=== PATIENT | male | born 1975 | race Caucasian/White ===

== ENCOUNTER 2021-08-27 10:32 | Outpatient (REF) | payer OTHER, SELFPAY | END 2021-08-27 10:33 | disposition home or self-care (01) | LOC: HO.HMGCLDS 10:32 | PROVIDERS: Visit Provider Internal Medicine | DX: Z20.822 Contact with and (suspected) exposure to COVID-19 (principal) | CPT/HCPCS: C9803; U0003; U0005 ==

== ENCOUNTER 2021-09-05 11:07 | Outpatient (REF) | payer OTHER, SELFPAY ==
[2021-09-05 12:01] LABS: Binax Internal Control QC Valid; Binax Now Covid-19 Ag Positive (Negative)
== END 2021-09-05 11:08 | disposition home or self-care (01) ==
LOC: HO.LAB 11:07
PROVIDERS: Visit Provider Internal Medicine
DX: Z20.822 Contact with and (suspected) exposure to COVID-19 (principal)
CPT/HCPCS: 36415; C9803

== ENCOUNTER 2021-11-05 09:31 | Outpatient (REF) | payer OTHER, SELFPAY ==
--- NOTE | ~2021-11-05 | XR_ITS ---
EXAMINATION: XR SHOULDER, RIGHT CLINICAL INFORMATION: Pain COMPARISON: None TECHNIQUE: AP external rotation, Grashey, scapular Y, and axillary views of the right shoulder. FINDINGS: There is normal alignment. No acute fracture or dislocation. There is narrowing of the glenohumeral and acromioclavicular joint spaces with mild hypertrophic changes. Overlying soft tissues are intact. Visualized portion of the lungs is clear. XR/XR shoulder RT min 2V IMPRESSION: Mild degenerative changes of the right shoulder without acute fracture or dislocation.
--- NOTE | ~2021-11-05 | XR_ITS ---
EXAMINATION: XR LUMBOSACRAL SPINE CLINICAL INFORMATION: Low back pain COMPARISON: None TECHNIQUE: Three views of the lumbosacral spine. FINDINGS: There is normal alignment without acute fracture or dislocation. Vertebral body heights are maintained. There is mild intervertebral disc space narrowing, most prominent at L4-L5 with endplate osteophyte formation. There is mild facet arthropathy at L4-L5 and L5-S1. The paravertebral soft tissues are normal. Sacroiliac joint spaces are preserved. XR/XR lumbar spine 2-3V IMPRESSION: No acute bony abnormality of the lumbar spine. Mild multilevel degenerative changes.
== END 2021-11-05 09:32 | disposition home or self-care (01) ==
LOC: HO.HMGCX 09:31
PROVIDERS: Visit Provider Internal Medicine
DX: M54.50 Low back pain, unspecified (principal); G89.29 Other chronic pain; M25.511 Pain in right shoulder; Z91.81 History of falling
CPT/HCPCS: 72100; 73030

== ENCOUNTER 2023-02-22 05:51 | Emergency (ER) | payer OTHER, SELFPAY ==
[2023-02-22 06:07] VITALS: BP 137/95; PULSE 60; RESP 14; TEMP 36.7; O2SAT 98; BMI 27.2
--- NOTE | 2023-02-22 08:05 | ED_ITS ---
HPI - Dental/Oral General Chief complaint: Dental/Oral Stated complaint: jaw/tooth pain? Time Seen by Provider: 02/22/23 08:04 Source: patient, RN notes reviewed and old records reviewed Mode of arrival: ambulatory History of Present Illness HPI Narrative: 47-year-old male with past medical history depression and anxiety presenting to the ED complaining of right lower molar pain x4 days. Admits tooth fell out about 1 month ago developed increasing pain Wednesday, worsened overnight, patient states unable to sleep secondary to pain. Took Tylenol without relief. Denies recent dental procedure, fever/chills, drainage from area, difficulty/inability to swallow MD Complaint: tooth pain Related Data Home Medications Medication Instructions Recorded Confirmed acetaminophen 650 mg 650 mg PO Q12H PRN pain 08/25/22 08/25/22 tablet,extended release (Tylenol Arthritis Pain) Previous Rx's Medication Instructions Recorded fluoxetine 10 mg capsule 10 mg PO DAILY #30 caps 08/25/22 nabumetone 500 mg tablet 500 mg PO DAILY PRN for severe 08/25/22 shoulder pain #30 caps amoxicillin 500 mg capsule 500 mg PO Q8H 10 days #30 caps 02/22/23 ketorolac 10 mg tablet 10 mg PO TID PRN pain 5 days #15 02/22/23 tabs Allergies Allergy/AdvReac Type Severity Reaction Status Date / Time No Known Allergies Allergy Verified 02/22/23 06:07 Review of Systems Review of Systems: Constitutional: No Fever, No Chills ENT/Mouth: +dental pain, No Ear Pain, No Nasal Congestion, No Sinus Pain, No Hoarseness, No sore throat, No Swallowing Difficulty Cardiovascular: No Chest Pain, No SOB Respiratory: No Cough, No Sputum, No Wheezing Gastrointestinal: No Nausea, No Vomiting, No Abdominal pain Musculoskeletal: No joint pain, No Myalgias, No Joint Swelling Skin: No Skin Lesions, No rash Neuro: No Weakness Yes all other systems are reviewed and are negative Constitutional: Constitutional: Reports as per [facility] Past Medical History Attestation statement: The following information was validated with the patient. Source: old records reviewed Medical History Depression with anxiety Lumbago Personal history of COVID-19 PTSD (post-traumatic stress disorder) Shoulder pain, right Surgical History No pertinent past surgical history Family History Family History Father Unknown family medical history Mother Emphysema, unspecified Osteoporosis Maternal Grandmother CVD (cardiovascular disease) Paternal Grandmother CVD (cardiovascular disease) Social History Social History Housing: House ([facility] apartment ) Alcohol intake: never Patient Tobacco Use Status: Current everyday Tobacco user Cigarettes Per Day: 2 e-Cigarette/Vaping Use: Never Used Advance Directives: No Advance Directives Information Provided: Yes service: No Current occupational status: employed Current occupation: [employer] Current occupational exposures/hazards: No Cognitive needs: No Hearing needs: No Vision needs: Yes Physical Exam Vital Signs: Vital Signs: Last Vital Signs Temp 98.0 F 02/22/23 06:07 Pulse 60 02/22/23 06:07 Resp 14 02/22/23 06:07 BP 137/95 H 02/22/23 06:07 Pulse Ox 98 02/22/23 06:07 O2 Del Method Room Air 02/22/23 06:07 BMI result Body Mass Index 27.2 Const: General: cooperative, healthy appearing, comfortable, no acute distress, alert and awake Orientation/consciousness: patient oriented x3 Limitations: no limitations HEENT: Other: No appreciable facial swelling. Bilateral 1st and 2nd lower molars missing. + right lower 3rd molar with gingival tenderness. No appreciable fluctuance/induration. No drainage. Head: Yes normal to inspection and Yes atraumatic Ears: hearing grossly normal bilaterally, external ears normal, TM's normal bilaterally and mastoids normal General nose exam: Normal external nose present Face and sinus: Yes normal facial exam Mouth: Normal oral and palatal mucosa present Teeth and gingiva: poor dentition Throat: Yes posterior oropharynx normal Eyes: General: appearance normal, both eyes and all related structures EOM: EOMs intact bilaterally Neck: Neck: Yes normal visual inspection, Yes no meningeal signs, Yes supple and No anterior neck swelling Resp: Effort & Inspection: normal respiratory effort and no respiratory distress Cardio: Rate: regular rate Skin: Rashes: no rashes Wounds: no wounds Neuro: General: patient oriented x3, tone normal and no meningeal signs Gait exam (Neuro): Normal gait present Extrem: General: Yes normal to inspection Medications Administered Discontinued Medications Generic Name Dose Route Start Last Admin Trade Name Freq PRN Reason Stop Dose Admin Ketorolac Tromethamine 30 mg 02/22/23 08:13 02/22/23 08:37 Ketorolac Tromethamine 30 Mg/Ml Vial IM 02/22/23 08:14 30 mg ONCE ONE Administration Medical Decision Making Medical Decision Making MDM Narrative: 47-year-old male with past medical history depression and anxiety presenting to the ED complaining of right lower molar pain x4 days. On exam vital signs stable, NAD, nontoxic appearing, physical exam a as noted above with right lower molar gingival tenderness. No appreciable fluctuance or evidence of abscess. No appreciable face swelling or neck swelling/torticollis. Handling secretions, no drooling. Concern for dental caries vs dental/gingival infection. No evidence of [employer] Plan: IM Toradol, p.o. antibiotics, dentistry follow-up Results discussed with patient including worrisome signs and symptoms and strict return precautions, and when to return to the emergency department. They verbalized understanding and feel safe for discharge at this time. Differential Diagnosis Differential Diagnoses: The differential diagnosis associated with the presentation includes As above External Record Review External record reviewed: Inpatient record, Office record, Outpatient record, Prior outpatient labs, Prior outpatient radiology, Primary care record and Outside ED record Tests considered The following testing was considered but not selected: As above Prescription Management I considered prescription management with: Pain Medication and Antibiotic Discharge Plan Discharge Clinical Impression: Toothache Patient Disposition: Home, Self-Care Instructions: Toothache (ED) Additional Instructions: Amoxicillin is antibiotic please take as prescribed Ketorolac as an anti-inflammatory/pain medication, take with food In addition take Tylenol Follow up with her dentist If pain persists or worsens/becomes unbearable you fever chills/inability to swallow return to the Prescriptions: New amoxicillin 500 mg capsule 500 mg PO Q8H 10 Days Qty: 30 0RF ketorolac 10 mg tablet 10 mg PO TID PRN (Reason: pain) 5 Days Qty: 15 0RF No Action acetaminophen [Tylenol Arthritis Pain] 650 mg tablet extended release 650 mg PO Q12H PRN (Reason: pain) fluoxetine 10 mg capsule 10 mg PO DAILY Qty: 30 1RF nabumetone 500 mg tablet 500 mg PO DAILY PRN (Reason: for severe shoulder pain) Qty: 30 0RF Referrals: Deniz Braden [Dentist] - Marlon Eng DMD [Dentist] - Roberto Begum DMD [Dentist] - Francie Manzo MD [Primary Care Provider] - Interventions: ED Discharge Assessment Last Done: 02/22/23 08:41 Discharge Date/Time: 02/22/23 08:42
[2023-02-22] MEDS: Ketorolac Tromethamine 30 MG/ML VIAL IM (08:37)
== END 2023-02-22 08:42 | disposition home or self-care (01) ==
PROVIDERS: Emergency Provider Emergency Medicine; PCP Internal Medicine
DX: K08.89 Other specified disorders of teeth and supporting structures (principal); F17.210 Nicotine dependence, cigarettes, uncomplicated
CPT/HCPCS: 96372; 99283; 99284; J1885